=== PATIENT | male | born 1990 | race American Indian/Alaskan Native ===

== ENCOUNTER 2018-06-05 10:36 | Emergency (ER) | payer BC, OTHER ==
--- NOTE | 2018-06-05 11:53 | Emergency Department Report ---
ED General Adult HPI - General Chief complaint: Neck Pain/Injury Stated complaint: LUMP ON NECK Time Seen by Provider: 06/05/18 11:03 Source: patient Mode of arrival: Ambulatory Limitations: No Limitations - History of Present Illness Initial comments: The patient presents to emergency department with chief complaint of swollen lymph nodes. The patient states the lymph nodes on the left side of his face underneath his mandible was swollen last night and was. Patient states that it was tender to touch and protruding. Patient states that he took Benadryl and use a warm compress and it decreased in size. Patient states that he ate crab around 5 PM and noticed a swelling around 9 or 10 PM last night. Patient denies having difficult breathing, or deformity swallowing on this time. Patient denies fever, cough, congestion, shortness of breath. -: Sudden Location: face Radiation: non-radiation Severity scale (0 -10): 2 Quality: dull Consistency: now resolved Improves with: none Worsens with: none Associated Symptoms: denies other symptoms Treatments Prior to Arrival: none - Related Data Previous Rx's Medication Instructions Recorded Last Taken Type Acetaminophen/Codeine [Tylenol #3] 1 tab PO Q6H PRN #20 tab 03/17/15 Unknown Rx predniSONE [Deltasone] 20 mg PO DAILY #15 tablet 06/05/18 Unknown Rx Allergies Allergy/AdvReac Type Severity Reaction Status Date / Time No Known Allergies Allergy Verified 03/17/15 15:55 ED Review of Systems ROS: Stated complaint: LUMP ON NECK Other details as noted in HPI Comment: All other systems reviewed and negative Constitutional: denies: chills, fever Eyes: denies: eye pain, eye discharge, vision change ENT: denies: ear pain, throat pain Respiratory: denies: cough, shortness of breath, wheezing Cardiovascular: denies: chest pain, palpitations Endocrine: no symptoms reported Gastrointestinal: denies: abdominal pain, nausea, diarrhea Genitourinary: denies: urgency, dysuria Musculoskeletal: denies: back pain, joint swelling, arthralgia Skin: denies: rash, lesions Neurological: denies: headache, weakness, paresthesias Psychiatric: denies: anxiety, depression Hematological/Lymphatic: denies: easy bleeding, easy bruising ED Past Medical Hx - Past Medical History Previous Medical History?: No - Surgical History Past Surgical History?: No - Social History Smoking Status: Current Every Day Smoker Substance Use Type: Alcohol, Marijuana - Medications Home Medications: Home Medications Medication Instructions Recorded Confirmed Last Taken Type Acetaminophen/Codeine [Tylenol #3] 1 tab PO Q6H PRN #20 tab 03/17/15 Unknown Rx predniSONE [Deltasone] 20 mg PO DAILY #15 tablet 06/05/18 Unknown Rx ED Physical Exam - General Limitations: No Limitations General appearance: alert, in no apparent distress - Head Head exam: Present: atraumatic, normocephalic - Eye Eye exam: Present: normal appearance, PERRL, EOMI - ENT ENT exam: Present: mucous membranes moist - Neck Neck exam: Present: normal inspection, lymphadenopathy (there is mild lymphadenopathy of the left submandibular lymph nodes without tenderness to palpation) - Respiratory Respiratory exam: Present: normal lung sounds bilaterally. Absent: respiratory distress - Cardiovascular Cardiovascular Exam: Present: regular rate, normal rhythm. Absent: systolic murmur, diastolic murmur, rubs, gallop - GI/Abdominal GI/Abdominal exam: Present: soft, normal bowel sounds. Absent: distended, tenderness - Rectal Rectal exam: Present: deferred - Extremities Exam Extremities exam: Present: normal inspection - Back Exam Back exam: Present: normal inspection - Neurological Exam Neurological exam: Present: alert, oriented X3, CN II-XII intact. Absent: motor sensory deficit - Psychiatric Psychiatric exam: Present: normal affect, normal mood - Skin Skin exam: Present: warm, dry, intact, normal color. Absent: rash ED Course Vital Signs 06/05/18 10:49 Temperature 97.1 F L Pulse Rate 67 Respiratory 16 Rate Blood Pressure 129/73 O2 Sat by Pulse 98 Oximetry ED Medical Decision Making - Lab Data Result diagrams: 06/05/18 11:35 06/05/18 11:35 Lab Results 06/05/18 06/05/18 Range/Units 11:35 11:35 WBC 7.7 (4.5-11.0) K/mm3 RBC 5.02 (3.65-5.03) M/mm3 Hgb 15.4 H (11.8-15.2) gm/dl Hct 45.9 H (35.5-45.6) % MCV 92 (84-94) fl MCH 31 (28-32) pg MCHC 34 (32-34) % RDW 14.5 (13.2-15.2) % Plt Count 219 (140-440) K/mm3 Lymph % (Auto) 26.4 (13.4-35.0) % [place] % (Auto) 9.4 H (0.0-7.3) % Eos % (Auto) 1.5 (0.0-4.3) % Baso % (Auto) 0.8 (0.0-1.8) % Lymph # 2.0 (1.2-5.4) K/mm3 [place] # 0.7 (0.0-0.8) K/mm3 Eos # 0.1 (0.0-0.4) K/mm3 Baso # 0.1 (0.0-0.1) K/mm3 Seg Neutrophils % 61.9 (40.0-70.0) % Seg Neutrophils # 4.8 (1.8-7.7) K/mm3 Sodium 140 (137-145) mmol/L Chloride 106.2 (98-107) mmol/L Carbon Dioxide 25 (22-30) mmol/L BUN 13 (9-20) mg/dL Creatinine 0.8 (0.8-1.5) mg/dL Estimated GFR > 60 ml/min BUN/Creatinine Ratio 16 % Glucose 118 H (75-100) mg/dL Calcium 9.3 (8.4-10.2) mg/dL - Medical Decision Making Discussed with patient that his monocytes were elevated and the differential for elevated monocytes which included but not limited to viral syndrome, mononucleosis. Patient struck to to follow with her primary care physician and to return to the ED if swelling occurs again Critical care attestation.: If time is entered above; I have spent that time in minutes in the direct care of this critically ill patient, excluding procedure time. ED Disposition Clinical Impression: Lymphadenopathy, High blood monocyte count Disposition: DC-01 TO HOME OR SELFCARE Is pt being admited?: No Does the pt Need Aspirin: No Condition: Stable Instructions: Lymphadenopathy (ED) Additional Instructions: return if worse Referrals: BENJAMIN FRANK MD [Primary Care Provider] - 3-5 Days [facility] [Provider Group] - 3-5 Days [facility] [Provider Group] - 3-5 Days [facility] [Outside] - 3-5 Days [facility] [Provider Group] - 3-5 Days [facility] [Provider Group] - 3-5 Days [facility] [Provider Group] - 3-5 Days NERI VAZQUEZ MD [Staff Physician] - 3-5 Days Time of Disposition: 12:24
[2018-06-05 11:58] LABS: Basophils # (Auto) 0.1 K/mm3 (0.0-0.1); Basophils % (Auto) 0.8 % (0.0-1.8); Eosinophils # (Auto) 0.1 K/mm3 (0.0-0.4); Eosinophils % (Auto) 1.5 % (0.0-4.3); Hematocrit 45.9 % (35.5-45.6); Hemoglobin 15.4 gm/dl (11.8-15.2); Lymphocytes % (Auto) 26.4 % (13.4-35.0); Mean Corpuscular HGB Conc 34 % (32-34); Mean Corpuscular Volume 92 fl (84-94); Monocytes # (Auto) 0.7 K/mm3 (0.0-0.8); Monocytes % (Auto) 9.4 % (0.0-7.3); Platelet Count 219 K/mm3 (140-440); Red Blood Count 5.02 M/mm3 (3.65-5.03); Red Cell Distribution Width 14.5 % (13.2-15.2)
[2018-06-05 12:12] LABS: BUN/Creatinine Ratio 16; Blood Urea Nitrogen 13 mg/dL (9-20); Calcium 9.3 mg/dL (8.4-10.2); Hemolysis Index 113
[2018-06-05 12:59] VITALS: BP 128/70
== END 2018-06-05 12:55 | disposition home or self-care (01) ==
LOC: ED 10:36
DX: R59.1 Generalized enlarged lymph nodes (principal); D72.829 Elevated white blood cell count, unspecified; F17.200 Nicotine dependence, unspecified, uncomplicated; F12.10 Cannabis abuse, uncomplicated
CPT/HCPCS: 36415; 80048; 85025

== ENCOUNTER 2019-01-31 16:47 | Emergency (ER) | payer SELFPAY ==
[2019-01-31 17:17] VITALS: BP 115/71
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
[2019-01-31] MEDS ORDERED: IBUPROFEN 800 MG TAB PO ONE (18:41)
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
--- NOTE | 2019-01-31 19:00 | XRay Report ---
Lumbar spine 2 views INDICATION: Low back pain IMPRESSION: Multilevel discogenic and facet type arthropathy throughout the lumbar spine especially a t L5-S1 with there is mild bilateral neural foraminal stenosis. Signer Name: Mike Handley MD Signed: 01/31/2019 6:56 PM Workstation Name: [id number]
== END 2019-01-31 19:42 | disposition home or self-care (01) ==
LOC: ED 16:47
DX: S39.012A Strain of muscle, fascia and tendon of lower back, initial encounter (principal); F17.200 Nicotine dependence, unspecified, uncomplicated; X58.XXXA Exposure to other specified factors, initial encounter; Y93.89 Activity, other specified; Y92.89 Other specified places as the place of occurrence of the external cause; Y99.8 Other external cause status
CPT/HCPCS: 72100